=== PATIENT | male | born 1990 | race Caucasian/White ===

== ENCOUNTER 2025-04-13 20:35 | Emergency (ER) | payer BC ==
[~2025-04-13] VITALS: Ht 170.2 cm; Wt 72.0 kg
[2025-04-13 20:38] VITALS: O2SAT 99
[2025-04-13] MEDS: SODIUM CHLORIDE 0.9% 1,000 ML IV ONE (21:04)
[2025-04-13 21:21] LABS: BASOPHILS % 0.1 % (0.0-2.0); EOSINOPHILS % 0.7 % (0.0-5.0); HEMATOCRIT. 43.6 % (42.0-52.0); HEMOGLOBIN. 14.4 g/dL (14.0-18.0); LYMPHOCYTES % 24.2 % (20.0-50.0); MEAN PLATELET VOLUME 9.5 fl (7.4-10.4); MONOCYTES % 3.6 % (2.0-8.0); NEUTROPHILS % 71.4 % (40.0-76.0); PLATELET 282 x1000/uL (130-400); RED BLOOD CELL COUNT 5.05 mill/uL (4.7-6.1); RED CELL DISTRIBUTION WIDTH 13.1 % (11.6-14.6)
[2025-04-13 21:35] LABS: CREATININE 1.2 mg/dL (0.6-1.3); UREA NITROGEN BLOOD 17 mg/dL (9-23)
[2025-04-13 21:37] LABS: ASPARTATE AMINOTRANSFERASE 16 IU/L (<34); BILIRUBIN DIRECT 0.2 mg/dL (<=3.0); BILIRUBIN TOTAL 0.6 mg/dL (0.1-1.0); PROTEIN TOTAL 7.3 g/dL (6.0-8.3); TROPONIN I HIGH SENSITIVITY < 4 ng/L (3.0-53)
[2025-04-13] MEDS ORDERED: AMOX1TAB16 MT (22:12)
[2025-04-13] MEDS: TETANUS, DIPHTHERIA, PERTUSSIS VAC/PF 0.5ML (>10YR OLD) IM ONE (22:27)
[2025-04-13 22:30] VITALS: BP 135/88; PULSE 65; RESP 16; TEMP 36.9; O2SAT 98
== END 2025-04-13 22:40 | disposition home or self-care (01) ==
LOC: ER 21:02
DX: S31.35XA Open bite of scrotum and testes, initial encounter (principal); R55 Syncope and collapse; J45.909 Unspecified asthma, uncomplicated; E86.0 Dehydration; W54.0XXA Bitten by dog, initial encounter; Y93.89 Activity, other specified; Y92.89 Other specified places as the place of occurrence of the external cause; Y99.8 Other external cause status
CPT/HCPCS: 80076; 80048; 80320; 83735; 85025; 84484; 36415; 71045; 90715; 90471; 96360; 99285; J7030; Z7610; G0480